=== PATIENT | female | born 2000 | race Caucasian/White ===

== ENCOUNTER → 2023-08-19 15:57 | Outpatient (CLI) | payer MEDICAID, SELFPAY | PROVIDERS: PCP Nurse Practitioner Family; Visit Provider Obstetrics & Gynecology | DX: N93.9 Abnormal uterine and vaginal bleeding, unspecified (principal) ==

== ENCOUNTER → 2023-08-20 10:55 | Outpatient (CLI) | payer MEDICAID, SELFPAY ==
[2023-08-20 11:11] LABS: Basophils # 0.1 K/mm3 (0-0.2); Basophils % 1.1 % (0.1-2.0); Eosinophils # 0.4 K/mm3 (0.0-0.4); Eosinophils % 5.5 % (0.1-12.0); Hematocrit 44.1 % (37.0-47.0); Hemoglobin 14.8 g/dL (12.2-16.2); Lymphocytes % 25.6 % (10-50); Mean Corpuscular HGB Conc 33.6 g/dL (31.8-35.4); Mean Corpuscular Hemoglobin 31.8 pg (27.0-31.2); Mean Corpuscular Volume 94.6 fl (81-99); Mean Platelet Volume 7.8 fl (7.4-10.4); Monocytes # 0.5 K/mm3 (0.1-1.0); Monocytes % 6.4 % (1.7-9.3); Neutrophils # 4.9 K/mm3 (1.8-7.8); Neutrophils % 61.3 % (37.0-80.0); Platelet Count 275 K/mm3 (142-424); Red Blood Count 4.66 M/mm3 (4.20-5.40); Red Cell Distribution Width 13.9 % (11.5-17.5); White Blood Count 7.9 K/mm3 (4.8-10.8)
[2023-08-20 11:29] LABS: Hemoglobin A1C 4.9 % (4.0-6.0)
[2023-08-20 12:15] LABS: Alanine Aminotransferase 23 U/L (12-78); Albumin Level 4.8 g/dl (3.5-5.0); Albumin/Globulin Ratio 1.5 (1.1-1.8); Alkaline Phosphatase 99 U/L (38-126); Anion Gap 15.1 mEq/L (5-15); Aspartate Amino Transferase 27 U/L (14-36); Blood Urea Nitrogen 8 mg/dl (7-17); Calcium 9.8 mg/dl (8.4-10.2); Carbon Dioxide 27 mmol/L (22.0-30.0); Chloride 102 mmol/L (98-107); Estimated Glomerular Filt Rate 102 ml/min (>60); GFR (African American) 123 ML/MIN (>60); Globulin 3.1 g/dL (1.3-3.2); Glucose 89 mg/dl (74-100); Glucose,Fasting 89 mg/dl (74-100); Potassium 4.1 mmoL/L (3.5-5.1); Sodium 140 mmol/L (136-145); Total Protein,Serum 7.9 g/dl (6.3-8.2)
[2023-08-20 12:45] LABS: Thyroid Stimulating Hormone 0.92 uIU/mL (0.465-4.68)
[2023-08-21 08:09] LABS: Estradiol 30.7 pg/mL (.)
[2023-08-21 09:09] LABS: FSH 6.8 mIU/mL (.)
[2023-08-22 11:50] LABS: Insulin Level Total 8.3 uIU/mL (2.6-24.9)
[2023-08-25 15:10] LABS: Testosterone, Total, LC/MS 41 ng/dL (.)
[2023-08-26 20:59] LABS: Anti Mullerian Hormone (AMH) 12.4
== END ==
LOC: LAB 10:55
PROVIDERS: PCP Nurse Practitioner Family; Visit Provider Obstetrics & Gynecology
DX: N93.9 Abnormal uterine and vaginal bleeding, unspecified (principal)
CPT/HCPCS: 36415; 80053; 82397; 82670; 82947; 83001; 83036; 83525; 84403; 84443; 85025

== ENCOUNTER → 2023-09-15 15:08 | Outpatient (CLI) | payer MEDICAID, SELFPAY ==
--- NOTE | 2023-09-15 15:15 | US_ITS ---
PROCEDURE: US TRANSVAGINAL CLINICAL INDICATION: abnormal uterine bleeding COMPARISON: No exams were available for comparison FINDINGS: Transvaginal sonographic images of the pelvis were obtained. UTERUS: 7.8cm x 4.7cmx 3.0cm with a combined endometrial thickness of 4.9mm. LEFT OVARY: 3.4cmx2.7cmx2.0cm with a volume of 9.7ml. There are multiple small peripheral follicles. RIGHT OVARY: 3.7cmx 2.7cmx2.9cm with a volume of 16.2ml. There are multiple small peripheral follicles. Both ovaries are seen and appear polycystic. Doppler flow to both ovaries are seen. There is no fluid in the cul-de-sac. IMPRESSION: 1. Anteverted uterus normal in shape and size. The endometrium is thin. 2. Both ovaries are seen and have a polycystic appearance. 3. No fluid in the cul-de-sac. Dictated by: Vikas Ferrara MD 09/16/2023 12:41 Vikas Ferrara MD in [facility] 09/16/2023 12:41
== END ==
PROVIDERS: PCP Nurse Practitioner Family; Visit Provider Obstetrics & Gynecology
DX: N93.9 Abnormal uterine and vaginal bleeding, unspecified (principal)
CPT/HCPCS: 76830